=== PATIENT | male | born 2000 | race African-American/Black ===

== ENCOUNTER 2019-06-21 01:32 | Emergency (ER) | payer OTHER ==
[~2019-06-21] VITALS: Ht 195.6 cm; Wt 106.8 kg
[2019-06-21] MEDS ORDERED: MORPHINE 4 MG/ML 1ML VIAL/SYRINGE (J2270) IV ONE (02:15)
[2019-06-21] MEDS ORDERED: ONDANSETRON 4MG/2ML VIAL (J2405) IV ONE (02:15)
[2019-06-21] MEDS ORDERED: NS 1,000 ML IV SCH (02:17)
[2019-06-21] MEDS ORDERED: METAL LOCK LOOP XX ONE (02:19)
[2019-06-21] MEDS ORDERED: PROPOFOL 1,000 MG/100 ML VIAL As Ordered ONE (02:19)
[2019-06-21] MEDS ORDERED: PROPOFOL 200 MG/20 ML VIAL IV ONE ×3 (02:25→02:28)
[2019-06-21] MEDS ORDERED: PROPOFOL 200 MG/20 ML VIAL IV PRN (02:30)
[2019-06-21 02:32] VITALS: O2SAT 100
[2019-06-21] MEDS ORDERED: IBUP-1022 PO (03:01)
[2019-06-21 03:37] VITALS: BP 145/74
--- NOTE | 2019-06-21 07:49 | REP ---
Clinical: Deformity. Technique: Internal rotation, external rotation, and Y view of the right shoulder. Findings: Anterior glenohumeral joint dislocation is appreciated. No fracture. Surrounding soft tissues are normal. Impression: Anterior glenohumeral joint dislocation. Electronically Signed by Richar Castro MD 06/21/2019 07:40 A
--- NOTE | 2019-06-21 07:58 | REP ---
Clinical: Status post reduction. Technique: Single AP view of the right shoulder. Findings: Shoulder in internal rotation demonstrates satisfactory reduction. Electronically Signed by Richar Castro MD 06/21/2019 07:50 A
== END 2019-06-21 03:51 | disposition home or self-care (01) ==
LOC: EDBD 01:32 → M ED 01:32
DX: M24.411 Recurrent dislocation, right shoulder (principal)
CPT/HCPCS: 73020; 73030; 93041; 94760; 96361; 96374; 96375; 99285; J2270; J2405